=== PATIENT | male | born 1980 | race American Indian/Alaskan Native ===

== ENCOUNTER 2016-05-30 11:26 | Emergency (ER) | payer SELFPAY ==
[2016-05-30 11:54] VITALS: BP 118/67
--- NOTE | 2016-05-30 13:53 | Emergency Department Report ---
ED Lower Extremity HPI - General Chief Complaint: Extremity Injury, Lower Stated Complaint: RT KNEE INJURY Time Seen by Provider: 05/30/16 13:21 Source: patient Mode of arrival: Ambulatory Limitations: No Limitations - History of Present Illness Initial Comments: 35-year-old male past medical history none presents with complaint of right knee pain. Patient states that on April 2089 was playing basketball and cruciate as he jumped he fell down and felt pain immediately in his right knee. Patient is ambulatory with moderate discomfort as he walks visible limp. Patient has been taking Motrin and icing knee with mild relief of pain. Denies any other injuries, denies any paresthesias in his leg. Patient has not received medical attention until today for this injury. No other injuries sustained. No significant knee or leg swelling MD Complaint: knee injury Onset/Timin -: days(s) Injury: Knee: Right (moderate right-sided knee pain, medial aspect of right knee ) Type of Injury: other (pain after jumping and landing on right leg) Place: other (occurred [place] per patient) Severity scale (0 -10): 6 Improves With: NSAID, cold therapy, immobilization Worsens With: weight bearing, movement Context: jumping Associated Symptoms: snap/pop sensation, swelling, able to partially bear weight - Related Data Previous Rx's Medication Instructions Recorded Last Taken Type Cyclobenzaprine [Flexeril] 10 mg PO TID PRN #15 tablet 01/29/16 Unknown Rx traMADol [Ultram] 50 mg PO Q6HR PRN #20 tablet 01/29/16 Unknown Rx Naproxen [Naprosyn TAB] 500 mg PO BID PRN #30 tablet 05/30/16 Unknown Rx traMADol [Ultram 50 MG tab] 50 mg PO Q6HR PRN #8 tablet 05/30/16 Unknown Rx Allergies Allergy/AdvReac Type Severity Reaction Status Date / Time No Known Allergies Allergy Unverified 01/29/16 11:44 ED Review of Systems ROS: Stated complaint: RT KNEE INJURY Other details as noted in HPI Constitutional: denies: chills, fever Eyes: denies: eye pain, eye discharge, vision change ENT: denies: ear pain, throat pain Respiratory: denies: cough, shortness of breath, wheezing Cardiovascular: denies: chest pain, palpitations Endocrine: no symptoms reported Gastrointestinal: denies: abdominal pain, nausea, diarrhea Genitourinary: denies: urgency, dysuria Musculoskeletal: as per HPI. denies: back pain, joint swelling, arthralgia Skin: denies: rash, lesions Neurological: denies: headache, weakness, paresthesias Psychiatric: denies: anxiety, depression Hematological/Lymphatic: denies: easy bleeding, easy bruising ED Past Medical Hx - Past Medical History Previous Medical History?: No - Surgical History Past Surgical History?: No - Social History Smoking Status: Current Some Day Smoker Substance Use Type: Marijuana - Medications Home Medications: Home Medications Medication Instructions Recorded Confirmed Last Taken Type Cyclobenzaprine [Flexeril] 10 mg PO TID PRN #15 tablet 01/29/16 Unknown Rx traMADol [Ultram] 50 mg PO Q6HR PRN #20 tablet 01/29/16 Unknown Rx Naproxen [Naprosyn TAB] 500 mg PO BID PRN #30 tablet 05/30/16 Unknown Rx traMADol [Ultram 50 MG tab] 50 mg PO Q6HR PRN #8 tablet 05/30/16 Unknown Rx ED Physical Exam - General Limitations: No Limitations General appearance: alert, in no apparent distress - Head Head exam: Present: atraumatic, normocephalic - Eye Eye exam: Present: normal appearance, PERRL, EOMI - ENT ENT exam: Present: mucous membranes moist - Neck Neck exam: Present: normal inspection - Respiratory Respiratory exam: Present: normal lung sounds bilaterally. Absent: respiratory distress - Cardiovascular Cardiovascular Exam: Present: regular rate, normal rhythm. Absent: systolic murmur, diastolic murmur, rubs, gallop - GI/Abdominal GI/Abdominal exam: Present: soft, normal bowel sounds - Rectal Rectal exam: Present: deferred - Extremities Exam Extremities exam: Present: normal inspection - Expanded Lower Extremity Exam Right Hip exam: Present: normal inspection, full ROM Upper Leg exam: Present: normal inspection, full ROM Knee exam: Present: normal inspection, tenderness, pain/laxity with valgus ( medial aspect of the knee with valgus tests moderate) Lower Leg exam: Present: normal inspection, full ROM Ankle exam: Present: normal inspection, full ROM Foot/Toe exam: Present: normal inspection, full ROM Neuro vascular tendon exam: Present: no vascular compromise Gait: Positive: observed and limited by pain - Back Exam Back exam: Present: normal inspection - Neurological Exam Neurological exam: Present: alert, oriented X3, CN II-XII intact, abnormal gait (limping due to pain and right knee) - Psychiatric Psychiatric exam: Present: normal affect, normal mood - Skin Skin exam: Present: warm, dry, intact, normal color. Absent: rash ED Course Vital Signs 05/30/16 11:51 Temperature 98.8 F Pulse Rate 97 H Respiratory 18 Rate Blood Pressure 118/67 O2 Sat by Pulse 97 Oximetry ED Lower Extremity MDM - Medical Decision Making A/P: Right knee sprain 1- refer patient to orthopedics, will place patient in knee immobilizer for support, patient is ambulatory with minimal difficulty otherwise, will provide w / crutches 2-naproxen 500 mg when necessary for pain 3-Jesus wrap to right knee, RICE therapy 4-x-ray shows osteochondroma mild effusion but no fracture. I made patient aware of findings and advised to follow up with orthopedics Critical care attestation.: If time is entered above; I have spent that time in minutes in the direct care of this critically ill patient, excluding procedure time. ED Disposition Clinical Impression: Knee pain, right Qualifiers: Chronicity: acute Qualified Code(s): M25.561 - Pain in right knee Disposition: DISCHARGED TO HOME OR SELFCARE Is pt being admited?: No Does the pt Need Aspirin: No Condition: Stable Instructions: Knee Pain (ED), Knee Effusion (ED), Knee Immobilizer (ED) Additional Instructions: [email or web address] Prescriptions: Naproxen [Naprosyn TAB] 500 mg PO BID PRN #30 tablet PRN Reason: Pain traMADol [Ultram 50 MG tab] 50 mg PO Q6HR PRN #8 tablet PRN Reason: Pain Referrals: PRIMARY CARE, [Primary Care Provider] - 3-5 Days BOGDAN SIDHU MD [Staff Physician] - 3-5 Days Time of Disposition: 14:37
--- NOTE | 2016-05-30 14:22 | XRay Report ---
FINAL REPORT PROCEDURE: XR KNEE 4 RT TECHNIQUE: RIGHT knee radiographs, AP, lateral and sunrise views. CPT 21699 HISTORY: right knee pain, please do w/ sunrise view COMPARISON: No prior studies are available for comparison. FINDINGS: No fracture or dislocation is seen. Moderate-sized joint effusion appears to be present. Joint spaces are well preserved. There extension of the cortex and marrow from the lateral aspect of the proximal tibial metaphysis. The appearance is consistent with an osteochondroma. This measures approximately 2.4 centimeter craniocaudal and 7.9 millimeters in transverse dimension. IMPRESSION: Moderate-sized joint effusion. No acute abnormality is seen. Cortex and medullary extension lateral aspect proximal tibial metaphysis consistent with an osteochondroma..
== END 2016-05-30 15:10 | disposition home or self-care (01) ==
LOC: ED 11:26
DX: M25.561 Pain in right knee (principal); F17.200 Nicotine dependence, unspecified, uncomplicated; F12.10 Cannabis abuse, uncomplicated; W18.30XA Fall on same level, unspecified, initial encounter; Y93.67 Activity, basketball; Y92.320 Baseball field as the place of occurrence of the external cause; Y99.9 Unspecified external cause status

== ENCOUNTER 2018-01-25 09:42 | Emergency (ER) | payer SELFPAY ==
[2018-01-25 10:10] VITALS: BP 103/60
--- NOTE | 2018-01-25 10:31 | XRay Report ---
RIGHT HAND, 3 views: History: Right hand pain, injury A fifth metacarpal neck fracture is identified with approximately 50 degrees anterior angulation. No calcified callus is identified consistent with an acute injury. The remaining bony structures and joint spaces are intact. Mild soft tissue swelling. IMPRESSION: Fifth metacarpal neck fracture.
[2018-01-25] MEDS ORDERED: MOTRIN PO ONE (10:35)
--- NOTE | 2018-01-25 10:35 | Emergency Department Report ---
ED Extremity Problem HPI - General Chief complaint: Extremity Injury, Upper Stated complaint: RT HAND INJURED Time Seen by Provider: 01/25/18 10:19 Source: patient Mode of arrival: Ambulatory Limitations: No Limitations - History of Present Illness Initial comments: Patient is a 37-year-old -[place] male who was angry 2 days ago and punched a refrigerator. The patient's complaint of right hand pain is throbbing at 7 out of 10 in severity. Patient has swelling on the ulnar side of the hand. Patient is unable to make a complete fist. - Related Data Previous Rx's Medication Instructions Recorded Last Taken Type Cyclobenzaprine [Flexeril] 10 mg PO TID PRN #15 tablet 01/29/16 Unknown Rx traMADol [Ultram] 50 mg PO Q6HR PRN #20 tablet 01/29/16 Unknown Rx Naproxen [Naprosyn TAB] 500 mg PO BID PRN #30 tablet 05/30/16 Unknown Rx traMADol [Ultram 50 MG tab] 50 mg PO Q6HR PRN #8 tablet 05/30/16 Unknown Rx HYDROcodone/APAP 5-325 [Hartman 1 each PO Q6HR PRN #15 tablet 01/25/18 Unknown Rx 5/325] Ibuprofen [Motrin] 800 mg PO Q8HR PRN #20 tablet 01/25/18 Unknown Rx Allergies Allergy/AdvReac Type Severity Reaction Status Date / Time No Known Allergies Allergy Unverified 01/29/16 11:44 ED Review of Systems ROS: Stated complaint: RT HAND INJURED Other details as noted in HPI Comment: All other systems reviewed and negative ED Past Medical Hx - Past Medical History Previous Medical History?: Yes Additional medical history: IBS. "low WBC". anemia. right knee injury - Surgical History Past Surgical History?: No - Social History Smoking Status: Current Every Day Smoker Substance Use Type: Alcohol, Marijuana - Medications Home Medications: Home Medications Medication Instructions Recorded Confirmed Last Taken Type Cyclobenzaprine [Flexeril] 10 mg PO TID PRN #15 tablet 01/29/16 Unknown Rx traMADol [Ultram] 50 mg PO Q6HR PRN #20 tablet 01/29/16 Unknown Rx Naproxen [Naprosyn TAB] 500 mg PO BID PRN #30 tablet 05/30/16 Unknown Rx traMADol [Ultram 50 MG tab] 50 mg PO Q6HR PRN #8 tablet 05/30/16 Unknown Rx HYDROcodone/APAP 5-325 [Hartman 1 each PO Q6HR PRN #15 tablet 01/25/18 Unknown Rx 5/325] Ibuprofen [Motrin] 800 mg PO Q8HR PRN #20 tablet 01/25/18 Unknown Rx ED Physical Exam - General Limitations: No Limitations General appearance: alert, in no apparent distress - Head Head exam: Present: atraumatic, normocephalic - Eye Eye exam: Present: normal appearance - ENT ENT exam: Present: mucous membranes moist - Neck Neck exam: Present: normal inspection - Respiratory Respiratory exam: Present: normal lung sounds bilaterally. Absent: respiratory distress - Cardiovascular Cardiovascular Exam: Present: regular rate, normal rhythm. Absent: systolic murmur, diastolic murmur, rubs, gallop - GI/Abdominal GI/Abdominal exam: Present: soft, normal bowel sounds - Rectal Rectal exam: Present: deferred - Extremities Exam Extremities exam: Present: normal inspection, tenderness (she has swelling to the right hand and loss of contour of the MCP joint of the fourth and fifth digit]). Absent: full ROM - Back Exam Back exam: Present: normal inspection - Neurological Exam Neurological exam: Present: alert, oriented X3 - Psychiatric Psychiatric exam: Present: normal affect, normal mood - Skin Skin exam: Present: warm, dry, intact, normal color. Absent: rash ED Course Vital Signs 01/25/18 10:07 Temperature 99.3 F Pulse Rate 73 Respiratory 18 Rate Blood Pressure 103/60 O2 Sat by Pulse 96 Oximetry ED Medical Decision Making - Radiology Data interpreted by me: Patient has a displaced angulated fracture of the distal metacarpal right hand fifth digit - Medical Decision Making Patient placed in ulnar gutter splint and will be discharged home. Critical care attestation.: If time is entered above; I have spent that time in minutes in the direct care of this critically ill patient, excluding procedure time. ED Disposition Clinical Impression: Boxers fracture Qualifiers: Encounter type: initial encounter Fracture type: closed Qualified Code(s): S62.339A - Displaced fracture of neck of unspecified metacarpal bone, initial encounter for closed fracture Disposition: - TO HOME OR SELFCARE Is pt being admited?: No Does the pt Need Aspirin: No Condition: Stable Instructions: Boxer Fracture (ED) Referrals: TORRES MIKE MD [Staff Physician] - 3-5 Days Time of Disposition: 10:35
== END 2018-01-25 11:13 | disposition home or self-care (01) ==
LOC: ED 09:42
DX: S62.339A Displaced fracture of neck of unspecified metacarpal bone, initial encounter for closed fracture (principal); K58.9 Irritable bowel syndrome, unspecified; F17.200 Nicotine dependence, unspecified, uncomplicated; F12.10 Cannabis abuse, uncomplicated; Z79.899 Other long term (current) drug therapy; Z86.2 Personal history of diseases of the blood and blood-forming organs and certain disorders involving the immune mechanism